=== PATIENT | female | born 1935 | race Hispanic/Latino ===

== ENCOUNTER 2017-04-23 13:51 | Emergency (ER) | payer MEDICARE ==
[2017-04-23 15:41] LABS: HEMATOCRIT 29.2 % (36-48); LYMPHOCYTES % (AUTO) 5.7 % (21.0-51.0); MEAN CORPUSCULAR HEMOGLOBIN 32.3 pg (27.0-33.0); MEAN CORPUSCULAR HGB CONC 34.4 g/dL (32.0-36.0); MEAN CORPUSCULAR VOLUME 93.7 fL (79-99); MONOCYTES % (AUTO) 5.5 % (3.0-13.0); NEUTROPHILS % (AUTO) 88.8 % (40.0-77.0); PLATELET COUNT (AUTO) 312 K/uL (130-400); RED BLOOD CELL COUNT(AUTO) 3.12 MIL/uL (4.00-5.50); WHITE BLOOD COUNT (AUTO) 14.3 K/uL (4.8-10.8)
[2017-04-23 15:50] LABS: INR 1.02 (0.85-1.15); PARTIAL THROMBOPLASTIN TIME 23.3 SEC (26.3-35.5); PROTHROMBIN TIME 10.7 SEC (9.6-11.6)
[2017-04-23 15:52] LABS: CREATININE 0.8 mg/dL (0.5-1.5); POTASSIUM 3.6 mmol/L (3.5-5.1)
[2017-04-23 15:56] LABS: ALBUMIN 3.1 g/dL (3.5-5.0); BILIRUBIN,DIRECT 0.1 mg/dL (0.0-0.3); BILIRUBIN,TOTAL 0.5 mg/dL (0.2-1.0); TOTAL PROTEIN, SERUM 6.3 g/dL (6.0-8.3)
[2017-04-23 16:26] LABS: APPEARANCE,URINE Clear (CLEAR); BILIRUBIN,URINE Negative (NEGATIVE); COLOR,URINE Yellow (YELLOW); GLUCOSE, URINE (UA) Negative (NEGATIVE); KETONES,URINE Negative (NEGATIVE); LEUKOCYTE ESTERASE ,URINE Small (NEGATIVE); NITRATE,URINE Negative (NEGATIVE); OCCULT BLOOD,URINE Negative (NEGATIVE); PH,URINE 6.5 (5.0-8.0); PROTEIN,URINE Negative (NEGATIVE); UROBILINOGEN,URINE 0.2 mg/dL (0.2-1.0)
[2017-04-23 16:27] LABS: B-TYPE NATRIURETIC PEPTIDE 72 pg/mL (0-100)
[2017-04-23] MEDS ORDERED: KETOROLAC TROMETHAMINE 15MG/ML ONE (16:50)
[2017-04-23 16:53] LABS: BACTERIA,URINE Rare /HPF (None Seen); RBC,URINE None Seen /HPF (0-1); SQUAMOUS EPITHELIAL CELL,UR None Seen /LPF (0-2)
== END 2017-04-23 17:59 | disposition home or self-care (01) ==
LOC: EDH 13:51
DX: G89.29 Other chronic pain (principal); M54.5 Low back pain; R53.1 Weakness; R79.1 Abnormal coagulation profile; I10 Essential (primary) hypertension; E07.9 Disorder of thyroid, unspecified; E78.00 Pure hypercholesterolemia, unspecified; Z98.890 Other specified postprocedural states
CPT/HCPCS: 36415; 72100; 80048; 80076; 81001; 82550; 83690; 83880; 84484; 85025; 85610; 85730; 93005; 96374; 99285; J1885

== ENCOUNTER 2017-06-03 12:15 | Emergency (ER) | payer MEDICARE ==
[2017-06-03 13:44] LABS: APPEARANCE,URINE Clear (CLEAR); BILIRUBIN,URINE Negative (NEGATIVE); COLOR,URINE Yellow (YELLOW); GLUCOSE, URINE (UA) Negative (NEGATIVE); KETONES,URINE Negative (NEGATIVE); LEUKOCYTE ESTERASE ,URINE Moderate (NEGATIVE); NITRATE,URINE Negative (NEGATIVE); OCCULT BLOOD,URINE Negative (NEGATIVE); PH,URINE 5.5 (5.0-8.0); PROTEIN,URINE Trace (NEGATIVE)
[2017-06-03 13:51] LABS: BACTERIA,URINE Rare /HPF (None Seen); RBC,URINE 0-1 /HPF (0-1); SQUAMOUS EPITHELIAL CELL,UR Rare /LPF (0-2)
[2017-06-03] MEDS ORDERED: CEFTRIAXONE SODIUM 1 GM ONE (15:41)
[2017-06-03] MEDS ORDERED: HYDROCODONE/ACETAMINOPHEN 10/325 MG TAB ONE (15:41)
[2017-06-03] MEDS ORDERED: LIDOCAINE HCL-MPF 1% 2ML VIAL ONE (15:42)
== END 2017-06-03 17:07 | disposition home or self-care (01) ==
LOC: EDH 12:15
DX: N39.0 Urinary tract infection, site not specified (principal); M54.5 Low back pain; E78.00 Pure hypercholesterolemia, unspecified; I10 Essential (primary) hypertension; E07.9 Disorder of thyroid, unspecified; M81.0 Age-related osteoporosis without current pathological fracture; Z88.1 Allergy status to other antibiotic agents; Z88.8 Allergy status to other drugs, medicaments and biological substances
CPT/HCPCS: 72100; 72131; 81001; 96374; 99285; J0696; J3490

== ENCOUNTER 2017-06-17 18:30 | Inpatient (IN) | payer MEDICARE ==
[~2017-06-17] VITALS: Ht 147.3 cm; Wt 68.0 kg
[2017-06-17 18:53] LABS: APPEARANCE,URINE Cloudy (CLEAR); BILIRUBIN,URINE Negative (NEGATIVE); COLOR,URINE Yellow (YELLOW); GLUCOSE, URINE (UA) Negative (NEGATIVE); KETONES,URINE Negative (NEGATIVE); LEUKOCYTE ESTERASE ,URINE Moderate (NEGATIVE); NITRATE,URINE Positive (NEGATIVE); OCCULT BLOOD,URINE Trace (NEGATIVE); PROTEIN,URINE Negative (NEGATIVE); UROBILINOGEN,URINE 0.2 mg/dL (0.2-1.0)
[2017-06-17] MEDS ORDERED: SODIUM CHLORIDE 0.9% 1000ML 1,000 ML IV ONE (19:03)
[2017-06-17] MEDS ORDERED: MEROPENEM 1 GM VIAL ONE (19:03)
[2017-06-17] MEDS ORDERED: ACETAMINOPHEN 325 MG TAB ONE (19:03)
[2017-06-17 19:14] LABS: BASOPHILS % (AUTO) 0.2 % (0.0-5.0); EOSINOPHILS % (AUTO) 0.3 % (0.0-8.0); HEMATOCRIT 28.7 % (36-48); MEAN CORPUSCULAR HEMOGLOBIN 33.8 pg (27.0-33.0); MEAN CORPUSCULAR HGB CONC 35.7 g/dL (32.0-36.0); MEAN CORPUSCULAR VOLUME 94.8 fL (79-99); NEUTROPHILS % (AUTO) 87.5 % (40.0-77.0); PLATELET COUNT (AUTO) 299 K/uL (130-400); RED BLOOD CELL COUNT(AUTO) 3.03 MIL/uL (4.00-5.50); RED CELL DISTRIBUTION WIDTH 14.3 % (11.0-15.5); WHITE BLOOD COUNT (AUTO) 13.2 K/uL (4.8-10.8)
[2017-06-17 19:17] LABS: CREATININE 1.3 mg/dL (0.5-1.5); POTASSIUM 3.5 mmol/L (3.5-5.1)
[2017-06-17 19:21] LABS: ALBUMIN 2.8 g/dL (3.5-5.0); BILIRUBIN,TOTAL 0.7 mg/dL (0.2-1.0); TOTAL PROTEIN, SERUM 6.2 g/dL (6.0-8.3)
[2017-06-17] MEDS ORDERED: IOPAMIDOL-370 75 ML VIAL IV ONE (19:34)
[2017-06-17 19:41] LABS: BACTERIA,URINE Moderate /HPF (None Seen); RBC,URINE None Seen /HPF (0-1); SQUAMOUS EPITHELIAL CELL,UR 0-2 /LPF (0-2)
[2017-06-17] MEDS ORDERED: VANCOMYCIN 1GM+NS 250ML 250 ML IV ONE (20:21)
[2017-06-18] MEDS ORDERED: MEROPENEM 1 GM VIAL ONE (03:06)
[2017-06-18] MEDS ORDERED: MORPHINE SULFATE 2 MG/ML 1ML SYG ONE (03:42)
[2017-06-18] MEDS ORDERED: ONDANSETRON HCL MDV 20ML 2 MG/ML VIAL ONE (03:42)
[2017-06-18 06:00] VITALS: BP 114/52
[2017-06-18] MEDS ORDERED: VANCOMYCIN PROTOCOL PER PHARMACY IV SCH (06:15)
[2017-06-18] MEDS ORDERED: ONDANSETRON HCL 4 MG/2 ML VIAL IVP PRN (06:15)
[2017-06-18] MEDS: VANCOMYCIN 1GM+NS 250ML 250 ML IV SCH ×2 (06:51→18:36)
[2017-06-18] MEDS: SODIUM CHLORIDE 0.9% 1000ML 1,000 ML IV SCH ×4 (06:51→23:01)
[2017-06-18] MEDS ORDERED: MEROPENEM 1 GM VIAL IVP SCH ×2 (07:00)
[2017-06-18] MEDS ORDERED: POTASSIUM CHLORIDE 10% ELIXIR 20 MEQ/15 ML UDCUP PO PRN (07:15)
[2017-06-18] MEDS ORDERED: HYDRALAZINE HCL 20 MG/ML VIAL IV PRN (07:15)
[2017-06-18] MEDS ORDERED: DEXTROSE 50%-WATER 50 ML DISP.SYRIN IV PRN (07:15)
[2017-06-18] MEDS ORDERED: GLUCAGON 1MG KIT 1 MG ML IM PRN (07:15)
[2017-06-18 08:00] VITALS: BP 114/52
[2017-06-18] MEDS: MEROPENEM 1 GM VIAL IVP SCH ×2 (08:57→23:00)
[2017-06-18] MEDS: FAMOTIDINE/PF 20 MG/2 ML VIAL IV SCH (08:58)
[2017-06-18] MEDS: ENOXAPARIN SODIUM 30 MG/0.3 ML SQ SCH (08:58)
[2017-06-18 11:00] VITALS: BP 104/52
[2017-06-18] MEDS ORDERED: FERR325T22 PO (14:40)
[2017-06-18] MEDS ORDERED: CETI-101 PO (14:40)
[2017-06-18] MEDS ORDERED: IBUP-2077 PO (14:40)
[2017-06-18] MEDS ORDERED: DOCU-116 PO (14:40)
[2017-06-18] MEDS ORDERED: NITR0.4T50 SL (14:40)
[2017-06-18] MEDS ORDERED: LEVO50TA4 PO (14:40)
[2017-06-18] MEDS ORDERED: ATOR10 PO (14:40)
[2017-06-18] MEDS ORDERED: LOSA25TA21 PO (14:40)
[2017-06-18] MEDS ORDERED: PRED20TA3 PO (14:40)
[2017-06-18] MEDS ORDERED: PANT40TA PO (14:40)
[2017-06-18] MEDS: POTASSIUM CHLORIDE 20 MEQ ERTAB PO PRN (15:43)
[2017-06-18 16:00] VITALS: BP 137/62
[2017-06-18 19:00] VITALS: BP 125/59
[2017-06-18 23:00] VITALS: BP 116/60
[2017-06-18] MEDS: MORPHINE SULFATE 2 MG/ML 1ML SYG IVP PRN (23:03)
[2017-06-19] VITALS (7 sets, daily range): BP systolic 130–165; BP diastolic 63–78
[2017-06-19] MEDS: VANCOMYCIN 1GM+NS 250ML 250 ML IV SCH ×2 (06:00→19:25)
[2017-06-19] MEDS: MORPHINE SULFATE 2 MG/ML 1ML SYG IVP PRN ×3 (06:01→19:25)
[2017-06-19] MEDS: SODIUM CHLORIDE 0.9% 1000ML 1,000 ML IV SCH (06:06)
[2017-06-19] MEDS ORDERED: BISACODYL 5 MG TABLET.DR PO SCH (08:00)
[2017-06-19 08:05] LABS: HEMATOCRIT 24.9 % (36-48); MEAN CORPUSCULAR HEMOGLOBIN 34.5 pg (27.0-33.0); MEAN CORPUSCULAR HGB CONC 36.3 g/dL (32.0-36.0); PLATELET COUNT (AUTO) 250 K/uL (130-400); RED BLOOD CELL COUNT(AUTO) 2.62 MIL/uL (4.00-5.50)
[2017-06-19 08:12] LABS: CREATININE 0.7 mg/dL (0.5-1.5)
[2017-06-19] MEDS ORDERED: FAMOTIDINE/PF 20 MG/2 ML VIAL IV ONE (09:07)
[2017-06-19] MEDS: MEROPENEM 1 GM VIAL IVP SCH ×2 (09:25→20:15)
[2017-06-19] MEDS: FAMOTIDINE/PF 20 MG/2 ML VIAL IV SCH (09:26)
[2017-06-19] MEDS: DOCUSATE SODIUM 100 MG CAP PO SCH ×2 (09:26→20:15)
[2017-06-19] MEDS: ENOXAPARIN SODIUM 30 MG/0.3 ML SQ SCH (09:26)
[2017-06-19] MEDS: POTASSIUM CHLORIDE 20MEQ/100ML 100 ML IV PRN ×2 (09:38→20:14)
[2017-06-19] MEDS: LIDOCAINE HCL-MPF 1% 2ML VIAL IVP PRN ×2 (09:38→20:14)
[2017-06-19] MEDS ORDERED: BISACODYL 10 MG SUPP.RECT RC ONE (20:00)
[2017-06-19] MEDS: ATORVASTATIN CALCIUM 10 MG TABLET PO SCH (20:15)
[2017-06-20 03:30] VITALS: BP 156/72
[2017-06-20 04:52] LABS: HEMATOCRIT 28.9 % (36-48); MEAN CORPUSCULAR HEMOGLOBIN 32.8 pg (27.0-33.0); MEAN CORPUSCULAR HGB CONC 34.4 g/dL (32.0-36.0); MEAN CORPUSCULAR VOLUME 95.3 fL (79-99); PLATELET COUNT (AUTO) 75 K/uL (130-400); RED BLOOD CELL COUNT(AUTO) 3.03 MIL/uL (4.00-5.50); RED CELL DISTRIBUTION WIDTH 14.2 % (11.0-15.5); WHITE BLOOD COUNT (AUTO) 9.3 K/uL (4.8-10.8)
[2017-06-20] MEDS: MORPHINE SULFATE 2 MG/ML 1ML SYG IVP PRN ×2 (04:56→16:47)
[2017-06-20 05:04] LABS: CREATININE 0.6 mg/dL (0.5-1.5); POTASSIUM 3.6 mmol/L (3.5-5.1)
[2017-06-20] MEDS: VANCOMYCIN 1GM+NS 250ML 250 ML IV SCH ×2 (05:09→17:13)
[2017-06-20] MEDS: LEVOTHYROXINE 50 MCG TABLET PO SCH (06:32)
[2017-06-20 08:00] VITALS: BP 193/92
[2017-06-20] MEDS: CETIRIZINE HCL 5 MG TABLET PO SCH (09:15)
[2017-06-20] MEDS: DOCUSATE SODIUM 100 MG CAP PO SCH ×2 (09:15→20:10)
[2017-06-20] MEDS: FERROUS SULFATE 325 MG TABLET.DR PO SCH (09:15)
[2017-06-20] MEDS: MEROPENEM 1 GM VIAL IVP SCH ×2 (09:16→20:09)
[2017-06-20] MEDS: FAMOTIDINE/PF 20 MG/2 ML VIAL IV SCH (09:16)
[2017-06-20] MEDS: ENOXAPARIN SODIUM 30 MG/0.3 ML SQ SCH (09:17)
[2017-06-20 11:00] VITALS: BP 152/77
[2017-06-20 16:00] VITALS: BP 163/82
[2017-06-20 20:00] VITALS: BP 144/78
[2017-06-20] MEDS: ATORVASTATIN CALCIUM 10 MG TABLET PO SCH (20:10)
[2017-06-21] VITALS: BP 150/80
[2017-06-21] MEDS: MORPHINE SULFATE 2 MG/ML 1ML SYG IVP PRN (02:35)
[2017-06-21 04:00] VITALS: BP 144/70
[2017-06-21] MEDS: VANCOMYCIN 1GM+NS 250ML 250 ML IV SCH ×2 (05:59→16:59)
[2017-06-21] MEDS: LEVOTHYROXINE 50 MCG TABLET PO SCH (06:34)
[2017-06-21] MEDS: DOCUSATE SODIUM 100 MG CAP PO SCH ×2 (07:58→23:43)
[2017-06-21] MEDS: FERROUS SULFATE 325 MG TABLET.DR PO SCH (07:58)
[2017-06-21] MEDS: CETIRIZINE HCL 5 MG TABLET PO SCH (07:58)
[2017-06-21] MEDS: MEROPENEM 1 GM VIAL IVP SCH ×2 (07:58→23:43)
[2017-06-21] MEDS: FAMOTIDINE/PF 20 MG/2 ML VIAL IV SCH (07:58)
[2017-06-21] MEDS: ENOXAPARIN SODIUM 30 MG/0.3 ML SQ SCH (07:59)
[2017-06-21 08:00] VITALS: BP 170/89
[2017-06-21] MEDS: BACLOFEN 10 MG TABLET PO SCH ×3 (09:00→23:43)
[2017-06-21] MEDS ORDERED: ACETAMINOPHEN-CODEINE 300/30MG TAB PO PRN (09:00)
[2017-06-21] MEDS ORDERED: MORPHINE SULFATE 2 MG/ML 1ML SYG IVP PRN (09:00)
[2017-06-21 11:00] VITALS: BP 115/74
[2017-06-21 16:00] VITALS: BP 126/76
[2017-06-21 20:00] VITALS: BP 138/70
[2017-06-21] MEDS: ATORVASTATIN CALCIUM 10 MG TABLET PO SCH (23:43)
[2017-06-21] MEDS: POTASSIUM CHLORIDE 20 MEQ ERTAB PO PRN (23:44)
[2017-06-22] VITALS: BP 133/76
[2017-06-22 04:00] VITALS: BP 134/72
[2017-06-22 06:20] LABS: POTASSIUM 3.3 mmol/L (3.5-5.1)
[2017-06-22 07:00] VITALS: BP 137/70
[2017-06-22] MEDS ORDERED: DIATR MEGLU/DIATRIZOATE SODIUM 30 ML BOTTLE ONE (07:05)
[2017-06-22] MEDS: LEVOTHYROXINE 50 MCG TABLET PO SCH (07:09)
[2017-06-22] MEDS: VANCOMYCIN 1GM+NS 250ML 250 ML IV SCH (07:10)
[2017-06-22] MEDS: BACLOFEN 10 MG TABLET PO SCH ×2 (08:11→13:27)
[2017-06-22] MEDS: CETIRIZINE HCL 5 MG TABLET PO SCH (08:11)
[2017-06-22] MEDS: FERROUS SULFATE 325 MG TABLET.DR PO SCH (08:11)
[2017-06-22] MEDS: DOCUSATE SODIUM 100 MG CAP PO SCH (08:11)
[2017-06-22] MEDS: MEROPENEM 1 GM VIAL IVP SCH (08:11)
[2017-06-22] MEDS: ENOXAPARIN SODIUM 30 MG/0.3 ML SQ SCH (08:12)
[2017-06-22] MEDS: FAMOTIDINE/PF 20 MG/2 ML VIAL IV SCH (09:00)
[2017-06-22] MEDS ORDERED: PANTOPRAZOLE SODIUM 40 MG TABLET.DR PO SCH (09:00)
[2017-06-22] MEDS ORDERED: IOPAMIDOL-370 75 ML VIAL IV ONE (09:41)
[2017-06-22 11:00] VITALS: BP 104/56
[2017-06-22] MEDS: POTASSIUM CHLORIDE 20 MEQ ERTAB PO PRN ×2 (13:28→16:25)
[2017-06-22 16:00] VITALS: BP 109/57
[2017-06-22] MEDS ORDERED: ATORVASTATIN CALCIUM 20 MG TABLET PO SCH (21:00)
[2017-06-22] MEDS ORDERED: METRONIDAZOLE 500 MG TABLET PO SCH (21:00)
[2017-06-23] MEDS ORDERED: LEVOFLOXACIN 500 MG TABLET PO SCH (09:00)
== END 2017-06-22 16:50 | DRG 872 ==
LOC: EDH 18:30 → EDHIP 21:29 → 3BH 06-18 05:25
PROVIDERS: ADMIT Internal Medicine Nephrology; ATTEND Internal Medicine Nephrology
DX: A41.9 Sepsis, unspecified organism (principal); N17.9 Acute kidney failure, unspecified; K57.92 Diverticulitis of intestine, part unspecified, without perforation or abscess without bleeding; E87.1 Hypo-osmolality and hyponatremia; N39.0 Urinary tract infection, site not specified; D64.9 Anemia, unspecified; E03.9 Hypothyroidism, unspecified; E78.5 Hyperlipidemia, unspecified; E87.6 Hypokalemia; F41.1 Generalized anxiety disorder; G89.29 Other chronic pain; I10 Essential (primary) hypertension; K21.9 Gastro-esophageal reflux disease without esophagitis; M81.0 Age-related osteoporosis without current pathological fracture; J30.9 Allergic rhinitis, unspecified; Z86.010 Personal history of colon polyps; Z90.710 Acquired absence of both cervix and uterus; Z88.8 Allergy status to other drugs, medicaments and biological substances
CPT/HCPCS: 36415; 71045; 74176; 74177; 80048; 80053; 80202; 81001; 83605; 84132; 85025; 85027; 87040; 87088; 87186; 97039; 99291; A4218; J1650; J2185; J3370; J3480; J3490; J7030; Q9963; Q9967

== ENCOUNTER 2018-09-01 14:09 | Emergency (ER) | payer MEDICARE ==
[~2018-09-01 14:09] MED LIST: ACET1TAB25 PO; ATOR10 PO; CALC3.8S NS; CETI10TA57 PO; FERR325T22 PO; FOLI1TAB15 PO; LIDOP TP; LOSA25TA41 PO; MULT-1311 PO; ONDA4TAB4 PO; PANT40TA PO; POLY17PO4 PO; PRED10TA3 PO; TRAM50TA4 PO; VIT1CAPS26 PO
[2018-09-01] MEDS ORDERED: TRAMADOL HCL 50 MG TABLET ONE (14:21)
[2018-09-01 14:43] LABS: BASOPHILS % (AUTO) 0.3 % (0.0-5.0); EOSINOPHILS % (AUTO) 0.1 % (0.0-8.0); HEMATOCRIT 33.5 % (36-48); LYMPHOCYTES % (AUTO) 13.3 % (21.0-51.0); MEAN CORPUSCULAR HEMOGLOBIN 33.5 pg (27.0-33.0); MEAN CORPUSCULAR HGB CONC 33.8 g/dL (32.0-36.0); MEAN CORPUSCULAR VOLUME 99.1 fL (79-99); NEUTROPHILS % (AUTO) 81.3 % (40.0-77.0); PLATELET COUNT (AUTO) 215 K/uL (130-400); RED BLOOD CELL COUNT(AUTO) 3.38 MIL/uL (4.00-5.50); RED CELL DISTRIBUTION WIDTH 13.9 % (11.0-15.5); WHITE BLOOD COUNT (AUTO) 6.7 K/uL (4.8-10.8)
[2018-09-01 14:52] LABS: CREATININE 0.8 mg/dL (0.5-1.5)
[2018-09-01 14:55] LABS: INR 1.02 (0.85-1.15); PROTHROMBIN TIME 10.7 SEC (9.6-11.6)
[2018-09-01 14:57] LABS: ALBUMIN 2.9 g/dL (3.5-5.0); BILIRUBIN,TOTAL 0.4 mg/dL (0.2-1.0); TOTAL PROTEIN, SERUM 6.1 g/dL (6.0-8.3)
== END 2018-09-01 16:24 | disposition home or self-care (01) ==
LOC: EDH 14:09
DX: S43.491A Other sprain of right shoulder joint, initial encounter (principal); I10 Essential (primary) hypertension; E07.9 Disorder of thyroid, unspecified; E78.5 Hyperlipidemia, unspecified; Z88.1 Allergy status to other antibiotic agents; Z88.8 Allergy status to other drugs, medicaments and biological substances; W18.39XA Other fall on same level, initial encounter; Y93.89 Activity, other specified; Y92.89 Other specified places as the place of occurrence of the external cause; Y99.8 Other external cause status
CPT/HCPCS: 36415; 71045; 71110; 73030; 80053; 82550; 84484; 85025; 85610; 85730; 93005

== ENCOUNTER 2023-08-11 17:56 | Emergency (ER) | payer MEDICARE ==
[~2023-08-11] VITALS: Ht 160 cm; Wt 81.6 kg
[~2023-08-11 17:56] MED LIST changes: +ACET-2079 PO; -ACET1TAB25 PO; +DOCU-116 PO; +ESCI-8 PO; +LEVO50TA11 PO; +LEVO75TA10 PO
[2023-08-11] MEDS ORDERED: DICL20GE TP (20:11)
[2023-08-11 20:32] VITALS: BP 120/60; PULSE 79; RESP 16; O2SAT 97
== END 2023-08-11 20:50 | disposition home or self-care (01) ==
LOC: EDH 17:56
DX: S86.911A Strain of unspecified muscle(s) and tendon(s) at lower leg level, right leg, initial encounter (principal); F41.9 Anxiety disorder, unspecified; K21.9 Gastro-esophageal reflux disease without esophagitis; E78.00 Pure hypercholesterolemia, unspecified; Z79.52 Long term (current) use of systemic steroids; Z79.899 Other long term (current) drug therapy; Z88.1 Allergy status to other antibiotic agents; Z88.2 Allergy status to sulfonamides; W18.39XA Other fall on same level, initial encounter; Y93.89 Activity, other specified; Y92.89 Other specified places as the place of occurrence of the external cause; Y99.8 Other external cause status
CPT/HCPCS: 73521; 73552; 73590; 73600; 73620